=== PATIENT | female | born 1975 | race Caucasian/White ===

== ENCOUNTER 2016-12-14 07:47 | Emergency (ER) | payer OTHER ==
[~2016-12-14] VITALS: Ht 157.5 cm; Wt 73.5 kg
[~2016-12-14 07:47] MED LIST: NO MEDS
[2016-12-14 07:49] VITALS: Ht 157.5 cm; Wt 73.5 kg
[2016-12-14] MEDS ORDERED: IBUPROFEN 600 MG TAB PO ONE (08:30)
[2016-12-14] MEDS ORDERED: CIPROFLOXACIN 500 MG TAB PO ONE (08:30)
[2016-12-14] MEDS ORDERED: IBUP-1542 PO (09:00)
--- NOTE | 2016-12-14 09:06 | ERD ---
ER Documentation Chief Complaint Date/Time DATE: 12/14/16 TIME: 09:02 Chief Complaint HEADACHE SINCE WEDNESDAY HPI 41-year-old female patient with a past medical history of cervical cancer status post total hysterectomy 4 years ago presents to the ED complaining of headache and neck pain that started wednesday morning, 2 days ago. Reports that she is concerned because her father got admitted for possible bacterial meningitis. States that it was a gradual onset and is getting worse. States that it is constant. Reports that she tried taking Tylenol yesterday with slight relief of her symptoms. Denies any neck stiffness, fever, chills, chest pain, shortness of breath, abdominal pain, nausea, vomiting. Denies any blurred vision, diplopia, vision loss. Denies any weakness, numbness or tingling. Denies any head injuries. Denies any loss of consciousness or seizures. ROS All systems reviewed and are negative except as per history of present illness. Medications Home Meds Active Scripts Ondansetron (Ondansetron Odt) 4 Mg Tab.rapdis, 4 MG PO Q6H Y for NAUSEA AND/OR VOMITING, #10 TAB Prov:PADMINI SU PA-C 12/18/16 Acetamin/Butalbital/Caffeine* (Fioricet*) [id number] Tab, 1 TAB PO Q6H Y for PAIN, #30 TAB Prov:PADMINI SU PA-C 12/18/16 Naproxen* (Naprosyn*) 500 Mg Tablet, 500 MG PO BID Y for PAIN AND/OR INFLAMMATION, #30 TAB Prov:PADMINI SU PA-C 12/18/16 Ibuprofen* (Motrin*) 600 Mg Tab, 600 MG PO Q6, #30 TAB Prov:BELLA ARANGO PA-C 12/14/16 Reported Medications [No Meds] No Conflict Check 09/28/12 Allergies Allergies: Coded Allergies: Vancomycin (Verified Allergy, Mild, ITCHINESS,HOT FACE, 12/11/09) PMhx/Soc History of Surgery: Yes (C SECTION, SCAR TISSUE SURGERY) Anesthesia Reaction: No Hx Neurological Disorder: No Hx Respiratory Disorders: No Hx Cardiac Disorders: No Hx Psychiatric Problems: No Hx Miscellaneous Medical Probl: Yes (cervical ca) Hx Alcohol Use: No Hx Substance Use: No Hx Tobacco Use: No Smoking Status: Never smoker Physical Exam Vitals Vital Signs Date Time Temp Pulse Resp B/P Pulse Ox O2 Delivery O2 Flow Rate FiO2 12/14/16 07:49 98.2 77 18 147/65 98 Physical Exam Const: [id number], well-nourished. In no acute distress. Head: Atraumatic, normocephalic Eyes: Normal Conjunctiva without injection. No purulent discharge. PERRLA. EOMI ENT: Normal external ear. Ear canal without erythema. Tympanic membrane pearly burch without effusion or bulging. Nasal canal clear with normal turbinates. Moist oropharynx without tonsillar exudates. Non-erythematous pharynx. Uvula midline. No drooling. No trismus. Neck: No cervical midline tenderness. Full range of motion. No meningismus. No cervical lymphadenopathy. No JVD. Negative Brudzinski's and Kernig's sign. Resp: Clear to auscultation bilaterally. No wheezing, rhonchi, rales, or crackles. No accessory muscle use. No retractions. Cardio: Regular rate and rhythm. No murmurs, rubs or gallops. Abd: Soft, non tender, non distended. Normal bowel sounds. No palpable masses. No rebound tenderness. No guarding. Negative McBurney's Point. Negative Gutierrez's Sign. Skin: Normal skin turgor. No petechiae or rashes Back: No midline tenderness. No CVA tenderness. Ext: No cyanosis, or edema. Distal pulses intact bilaterally. Neur: Awake and alert. Normal gait. Normal coordination. Cranial Nerves II- VII intact. Normal finger to nose. Muscle strength 5/5. Sensation intact. Psych: Normal Mood and Affect Results 24 hrs Current Medications Medications (Trade) Dose Ordered Sig/Pilar Route PRN Reason Start Time Stop Time Status Last Admin Dose Admin Ciprofloxacin (Cipro) 500 mg ONCE ONCE PO 12/14/16 08:30 12/14/16 08:34 DC 12/14/16 08:35 Ibuprofen (Motrin) 600 mg ONCE ONCE PO 12/14/16 08:30 12/14/16 08:34 DC 12/14/16 08:35 Procedures/MDM This is a 41-year-old female patient with a past medical history of cervical cancer presents to the ED complaining of a headache that started 2 days ago. Patient is afebrile and nontoxic-appearing. Patient will be given ciprofloxacin 500 mg for treatment of prophylaxis of exposure to meningitis and ibuprofen here in the ED for pain. Patient states that her symptoms have slightly improved. No nuchal rigidity noted. Negative Kernig sign. Negative Brudzinski's sign. There is low suspicion for meningitis, intracranial bleed, seizures, subarachnoid hemorrhage, TIA, stroke, subdural hematoma, epidural hematoma, pneumonia, urinary tract infection or other emergent conditions. This case was discussed with my supervising physician, Dr. Hunter who agreed with the management and discharge plan. Discharge medications: Ibuprofen Follow up with primary care physician in 1-2 days. Instructed patient to return to the ED sooner for any worsening symptoms such as fever, chills, worsening headache, neck stiffness. Patient's questions were answered. Patient understood and agreed with discharge plan. Patient discharged stable. Departure Diagnosis: Primary Impression: Headache Headache type: unspecified Headache chronicity pattern: unspecified pattern Intractability: not intractable Qualified Code: R51 - Nonintractable headache, unspecified chronicity pattern, unspecified headache type Condition: Stable Patient Instructions: Headache, Unspecified Referrals: JACKIE HOANG DO (PCP) [facility] YOU HAVE RECEIVED A MEDICAL SCREENING EXAM AND THE RESULTS INDICATE THAT YOU DO NOT HAVE A CONDITION THAT REQUIRES URGENT TREATMENT IN THE EMERGENCY DEPARTMENT. FURTHER EVALUATION AND TREATMENT OF YOUR CONDITION CAN WAIT UNTIL YOU ARE SEEN IN YOUR DOCTORS OFFICE WITHIN THE NEXT 1-2 DAYS. IT IS YOUR RESPONSIBILITY TO MAKE AN APPOINTMENT FOR FOLOW-UP CARE. IF YOU HAVE A PRIMARY DOCTOR --you should call your primary doctor and schedule an appointment IF YOU DO NOT HAVE A PRIMARY DOCTOR YOU CAN CALL OUR PHYSICIAN REFERRAL HOTLINE AT IF YOU CAN NOT AFFORD TO SEE A PHYSICIAN YOU CAN CHOSE FROM THE FOLLOWING [facility] [address] [facility] [address] [facility]. [facility] [address] [facility] [address] [facility] [address] [facility]. [facility] [address] [facility]. [facility] YOU HAVE RECEIVED A MEDICAL SCREENING EXAM AND THE RESULTS INDICATE THAT YOU DO NOT HAVE A CONDITION THAT REQUIRES URGENT TREATMENT IN THE EMERGENCY DEPARTMENT. FURTHER EVALUATION AND TREATMENT OF YOUR CONDITION CAN WAIT UNTIL YOU ARE SEEN IN YOUR DOCTORS OFFICE WITHIN THE NEXT 1-2 DAYS. IT IS YOUR RESPONSIBILITY TO MAKE AN APPOINTMENT FOR FOLOW-UP CARE. IF YOU HAVE A PRIMARY DOCTOR --you should call your primary doctor and schedule and appointment IF YOU DO NOT HAVE A PRIMARY DOCTOR YOU CAN CALL OUR PHYSICIAN REFERRAL HOTLINE AT . IF YOU CAN NOT AFFORD TO SEE A PHYSICIAN YOU CAN CHOSE FROM THE FOLLOWING [facility] INSTITUTIONS: [facility] [address] [place] [address] [facility] [address] [place], [place] [id number] [place] [address] [address] [place] [address] [facility] Additional Instructions: Call your primary care doctor TOMORROW for an appointment during the next 2-3 days. See the doctor sooner or return here if your condition worsens such as fever, chills, neck stiffness, worsening pain before your appointment time. BELLA ARANGO PA-C Dec 14, 2016 09:06
[2016-12-14 09:10] VITALS: BP 121/84; PULSE 66; RESP 18
== END 2016-12-14 09:14 | disposition home or self-care (01) ==
LOC: FTE 07:47
DX: R51 Headache (principal); Z85.41 Personal history of malignant neoplasm of cervix uteri
CPT/HCPCS: 99283

== ENCOUNTER 2016-12-18 13:25 | Emergency (ER) | payer OTHER ==
[~2016-12-18] VITALS: Ht 162.6 cm; Wt 73.0 kg
[~2016-12-18 13:25] MED LIST changes: +IBUP-1542 PO
[2016-12-18 13:27] VITALS: Ht 162.6 cm; Wt 73.0 kg
[2016-12-18] MEDS ORDERED: ONDANSETRON 4 MG INJ IV STA (13:52)
[2016-12-18] MEDS ORDERED: morphine 4 MG/ML VIAL IV STA (13:52)
[2016-12-18] MEDS ORDERED: SOD CHLORIDE 0.9% 1,000 ML IV ONE (14:00)
--- NOTE | 2016-12-18 14:23 | ERD ---
ER Documentation Chief Complaint Date/Time DATE: 12/18/16 TIME: 14:21 Chief Complaint Complains of frontal headache and neck pain x since wednesday HPI 41-year-old female with history of cervical cancer in remission status post total hysterectomy was emergency department 4 day history of headache, neck pain , vomiting. She states that Wednesday which was 5 days ago the pain gradually started, was in the frontal aspect and out as an occipital she states that her neck has also been hurting. Over the last day she also developed nausea and vomiting. She was seen here 2 days ago, she was given a dose of Cipro and ibuprofen. She was discharged with ibuprofen and she has been taking that as well as some [place] at home. She states that the headache has not improved, has worsened. She has not had any fevers, chills, rashes. She denies recent travel. ROS All systems reviewed and are negative except as per history of present illness. Medications Home Meds Active Scripts Ondansetron (Ondansetron Odt) 4 Mg Tab.rapdis, 4 MG PO Q6H Y for NAUSEA AND/OR VOMITING, #10 TAB Prov:PADMINI SU PA-C 12/18/16 Acetamin/Butalbital/Caffeine* (Fioricet*) [id number] Tab, 1 TAB PO Q6H Y for PAIN, #30 TAB Prov:PADMINI SU PA-C 12/18/16 Naproxen* (Naprosyn*) 500 Mg Tablet, 500 MG PO BID Y for PAIN AND/OR INFLAMMATION, #30 TAB Prov:PADMINI SU PA-C 12/18/16 Ibuprofen* (Motrin*) 600 Mg Tab, 600 MG PO Q6, #30 TAB Prov:BELLA ARANGO PA-C 12/14/16 Reported Medications [No Meds] No Conflict Check 09/28/12 Allergies Allergies: Coded Allergies: Vancomycin (Verified Allergy, Mild, ITCHINESS,HOT FACE, 12/11/09) PMhx/Soc History of Surgery: Yes (C SECTION, SCAR TISSUE SURGERY) Anesthesia Reaction: No Hx Neurological Disorder: No Hx Respiratory Disorders: No Hx Cardiac Disorders: No Hx Psychiatric Problems: No Hx Miscellaneous Medical Probl: Yes (cervical ca) Hx Alcohol Use: No Hx Substance Use: No Hx Tobacco Use: No Smoking Status: Never smoker Physical Exam Vitals Vital Signs Date Time Temp Pulse Resp B/P Pulse Ox O2 Delivery O2 Flow Rate FiO2 12/18/16 16:45 97.5 58 18 139/63 99 12/18/16 13:27 98.6 84 20 194/82 99 Physical Exam General: Well-developed, well-nourished. The patient appears in no acute distress. HEENT: Head is normocephalic, atraumatic. No scleral icterus. Pupils are equal , round, and reactive. Oral mucous membranes are moist. No pharyngeal erythema. Neck: Supple. Nontender. Lungs: Clear to auscultation. Normal air movement. Heart: Regular rate and rhythm. S1 and S2 are normal. No murmurs, gallops, or rubs. Abdomen: Soft, nontender, nondistended. Bowel sounds are normoactive. Extremities: No clubbing or cyanosis. Normal pulses. Moving extremities x 4. No weakness. Neurologic: Alert and oriented 3. No focal deficits. Cranial nerves II 12 grossly intact. Speech and gait normal. Skin: Normal turgor. No rash or lesions. Result Diagram: 12/18/16 1430 12/18/16 0301 Results 24 hrs Laboratory Tests Test 12/18/16 03:01 12/18/16 14:15 12/18/16 14:30 Sodium Level 142mmol/L Potassium Level 4.0mmol/L Chloride Level 105mmol/L Carbon Dioxide Level 27mmol/L Anion Gap 14 Blood Urea Nitrogen 12mg/dl Creatinine 0.60mg/dl Glucose Level 95mg/dl Calcium Level 9.5mg/dl Total Bilirubin 0.1mg/dl Direct Bilirubin 0.00mg/dl Indirect Bilirubin 0.1mg/dl Aspartate Amino Transf (AST/SGOT) 21IU/L Alanine Aminotransferase (ALT/SGPT) 34IU/L Alkaline Phosphatase 67IU/L Troponin I < 0.012ng/ml Total Protein 7.4g/dl Albumin 4.8g/dl Globulin 2.60g/dl Albumin/Globulin Ratio 1.84 Lipase 48U/L Urine Color LT. YELLOW Urine Clarity CLEAR Urine pH 5.5 Urine Specific [place] 1.020 Urine Ketones NEGATIVE Urine Nitrite NEGATIVE Urine Bilirubin NEGATIVE Urine Urobilinogen 0.2 E.U./dL Urine Leukocyte Esterase NEGATIVE Urine Microscopic RBC 0-2/HPF Urine Microscopic WBC 0-2/HPF Urine Epithelial Cells RARE Urine Hemoglobin 1+ Urine Glucose NEGATIVE% Urine Total Protein NEGATIVE White Blood Count 9.010^3/ul Red Blood Count 3.6610^6/ul Hemoglobin 12.2g/dl Hematocrit 35.0% Mean Corpuscular Volume 95.6fl Mean Corpuscular Hemoglobin 33.3pg Mean Corpuscular Hemoglobin Concent 34.9g/dl Red Cell Distribution Width 11.6% Platelet Count 56907^3/UL Mean Platelet Volume 9.7fl Neutrophils % 70.3% Lymphocytes % 20.9% Monocytes % 6.9% Eosinophils % 1.0% Basophils % 0.6% Nucleated Red Blood Cells % 0.0/100WBC Neutrophils # 6.410^3/ul Lymphocytes # 1.910^3/ul Monocytes # 0.610^3/ul Eosinophils # 0.110^3/ul Basophils # 0.110^3/ul Nucleated Red Blood Cells # 0.010^3/ul Lactic Acid Level 1.0mmol/L Current Medications Medications (Trade) Dose Ordered Sig/Pilar Route PRN Reason Start Time Stop Time Status Last Admin Dose Admin Morphine Sulfate (morphine) 4 mg ONCE STAT IV 12/18/16 13:52 12/18/16 13:54 DC 12/18/16 14:47 Ondansetron HCl 4 mg 4 mg ONCE STAT IV 12/18/16 13:52 12/18/16 13:54 DC 12/18/16 14:46 Sodium Chloride (NS) 1,000 ml @ 1,000 mls/hr Q1H ONCE IV 12/18/16 14:00 12/18/16 14:59 DC 12/18/16 14:46 Ketorolac Tromethamine (Toradol) 30 mg ONCE STAT IV 12/18/16 16:40 12/18/16 16:41 DC 12/18/16 16:55 12-lead EKG(interpreted by supervising physician): Dr. Hunter Rate/Rhythm: Normal Sinus Rhythm, rate of 67 QRS, ST, T-waves: No changes consistent w/ acute ischemia, no intervals, no dysrhythmias, no ectopy Impression: No evidence of ischemia or arrhythmia Procedures/MDM ED course: Patient had an IV line established, blood and urine were obtained, cultures obtained. She was given morphine 4 mg, Zofran 4 mg IV. Normal saline 1 L given. She states that she still feels headache at this time, she was given Toradol 30 mg IV. I reassessed the patient, her photophobia improved, headache is improved as well. She does not experience any vomiting in the emergency room. MDM: 41-year-old female comes in with headache for approximately for 5 days, she was initially concerned because of her father who was hospitalized for possible meningitis. Patient's father was admitted, did have a UTI however no evidence of bacterial meningitis, and unlikely viral meningitis. She does not have any leukocytosis, all labs are normal, lactic acid was normal. CT head was unremarkable. I suspect a migraine headache at this time. She improved with Toradol, and feels much better at this time and feels comfortable being discharged from the emergency room. She was also evaluated by my attending physician Dr. Ardon who agrees with my assessment and plan. We will give her Fioricet, Naprosyn and Zofran for home. She should return for any worsening symptoms including fevers. Otherwise she is to have close follow-up with her primary care doctor. Patient's blood pressure was elevated (>120/80) but appears stable without evidence of hypertension emergency or urgency. The patient was counseled about the risks of hypertension and urged to pursue outpatient monitoring and therapy within a week with their primary care physician. Departure Diagnosis: Primary Impression: Headache Condition: PADMINI Junior PA-C Dec 18, 2016 14:23
[2016-12-18 14:46] LABS: ADD SCAN DIFF NO
[2016-12-18 14:50] LABS: BASOPHIL # 0.1 10^3/ul (0.0-0.1); BASOPHILS % 0.6 % (0.0-2.0); EOSINOPHILS # 0.1 10^3/ul (0.0-0.5); HEMOGLOBIN 12.2 g/dl (12.0-16.0); LYMPHOCYTES # 1.9 10^3/ul (0.8-2.9); LYMPHOCYTES % 20.9 % (15.0-51.0); MEAN CORPUSCULAR HEMOGLOBIN 33.3 pg (29.0-33.0); MEAN CORPUSCULAR HGB CONC 34.9 g/dl (32.0-37.0); MEAN CORPUSCULAR VOLUME 95.6 fl (82.0-101.0); MEAN PLATELET VOLUME 9.7 fl (7.4-10.4); MONOCYTE # 0.6 10^3/ul (0.3-0.9); MONOCYTES % 6.9 % (0.0-11.0); NEUTROPHIL # 6.4 10^3/ul (1.6-7.5); NEUTROPHILS % 70.3 % (39.0-77.0); PLATELET COUNT 330 10^3/UL (140-415); RED BLOOD COUNT 3.66 10^6/ul (4.20-5.40); RED CELL DISTRIBUTION WIDTH 11.6 % (11.5-14.5)
[2016-12-18 15:04] LABS: ADD UMIC YES; URINE BILIRUBIN (Dip) NEGATIVE (NEGATIVE); URINE BLOOD (Dip) 1+ (NEGATIVE); URINE COLOR LT. YELLOW (YELLOW); URINE GLUCOSE (Dip) NEGATIVE (NEGATIVE); URINE KETONES (Dip) NEGATIVE (NEGATIVE); URINE LEUKOCYTE ESTERASE (Dip) NEGATIVE (NEGATIVE); URINE NITRITE (Dip) NEGATIVE (NEGATIVE); URINE TOTAL PROTEIN (Dip) NEGATIVE (NEGATIVE); URINE UROBILINOGEN (Dip) 0.2 E.U./dL (0.1-1.0)
[2016-12-18 15:10] LABS: ALANINE AMINOTRANSFERASE 34 IU/L (13-69); ALBUMIN 4.8 g/dl (3.3-4.9); ALBUMIN/GLOBULIN RATIO 1.84; ALKALINE PHOSPHATASE 67 IU/L (42-121); ANION GAP 14 (8-16); ASPARTATE AMINO TRANSFERASE 21 IU/L (15-46); BILIRUBIN,INDIRECT 0.1 mg/dl (0-1.1); BILIRUBIN,TOTAL 0.1 mg/dl (0.2-1.3); BLOOD UREA NITROGEN 12 mg/dl (7-20); CALCIUM 9.5 mg/dl (8.4-10.2); CARBON DIOXIDE 27 mmol/L (21-31); CHLORIDE 105 mmol/L (97-110); GLUCOSE 95 mg/dl (70-220); SODIUM 142 mmol/L (135-144); TOTAL PROTEIN 7.4 g/dl (6.1-8.1)
[2016-12-18 15:12] LABS: URINE RBCS 0-2 /HPF (0)
--- NOTE | 2016-12-18 15:40 | RADRPT ---
PROCEDURE: CT Head without. CLINICAL INDICATION: Headache and numbness. TECHNIQUE: The study was performed utilizing a multi-slice, multidetector CT scanner. Direct spira l 1 mm axial sections were obtained through the head without the use of intravenous contrast materia l. 1 or more of the following dose reduction techniques were utilized: Automated exposure control, adjustment of the mA and/or kV according to patient's size, iterative reconstruction technique. Co jasmyn and sagittal reformations were obtained. The images were reviewed on a PACS workstation. RADIATION DOSE: CTDIvol: 44.4 mGyDLP: 630.2 mGy-cm COMPARISON: No prior studies are available for comparison. FINDINGS: There is no intracranial hemorrhage, extra-axial fluid collection, mass lesion, midline shift or hyd rocephalus. The ventricles, sulci and cisterns are within normal limits. The white matter is unrem arkable. The burch-white matter differentiation is preserved. The basal cisterns are patent. The m idline structures are intact. The orbits, calvarium and extracranial soft tissues are normal in huseyin earance. The visualized paranasal sinuses, mastoid air cells and middle ear cavities are normally ae rated. IMPRESSION: 1. No acute intracranial abnormality. No intracranial hemorrhage, extra-axial fluid collection, ma ss lesion or hydrocephalous. RPTAT: HGAS .Jose Jamil MD, MD Date Time Electronically viewed and signed by .Jose Jamil MD, MD on 12/18/2016 15:40 .S/
[2016-12-18 15:44] LABS: TROPONIN-I < 0.012 ng/ml (0.00-0.12)
[2016-12-18] MEDS ORDERED: KETOROLAC 30 MG INJ IV STA (16:40)
[2016-12-18] MEDS ORDERED: ONDA4TAB14 PO (17:33)
[2016-12-18] MEDS ORDERED: NAPR-260 PO (17:33)
[2016-12-18] MEDS ORDERED: FIORICET PO (17:33)
[2016-12-18 17:50] VITALS: BP 134/69; PULSE 61; RESP 18; TEMP 98.4
== END 2016-12-18 17:50 | disposition home or self-care (01) ==
LOC: FTE 13:25
DX: R51 Headache (principal); R20.0 Anesthesia of skin; R11.2 Nausea with vomiting, unspecified; M54.2 Cervicalgia; Z85.41 Personal history of malignant neoplasm of cervix uteri
CPT/HCPCS: 36415; 70450; 80053; 81001; 83605; 83690; 84484; 85025; 87040; 87086; 96361; 96374; 96375; 99285; J1885; J2270; J2405; J7030